=== PATIENT | female | born 1940 | race Caucasian/White ===

== ENCOUNTER 2017-11-26 09:37 | Day surgery (SDC) | payer OTHER ==
[~2017-11-26] VITALS: Ht 154.9 cm; Wt 71.7 kg
[2017-11-26] MEDS ORDERED: AMLO10TA PO (11:03)
[2017-11-26] MEDS ORDERED: METF500T PO (11:03)
[2017-11-26] MEDS ORDERED: LIDOCAINE 2% 100 MG/5 ML UJET TP ONE (11:38)
[2017-11-26] MEDS ORDERED: fentaNYL 0.05 MG/ML VIAL ONE (11:43)
[2017-11-26] MEDS ORDERED: fentaNYL 0.05 MG/ML VIAL IM ONE (12:00)
== END 2017-11-26 12:47 | disposition home or self-care (01) ==
LOC: MDS 09:37 → MMU 09:46 → MDS 12:47
PROVIDERS: ATTEND Internal Medicine Gastroenterology
DX: K57.90 Diverticulosis of intestine, part unspecified, without perforation or abscess without bleeding (principal); D64.9 Anemia, unspecified; E11.9 Type 2 diabetes mellitus without complications; E78.00 Pure hypercholesterolemia, unspecified; I10 Essential (primary) hypertension; E66.3 Overweight; Z90.710 Acquired absence of both cervix and uterus; Z80.0 Family history of malignant neoplasm of digestive organs; Z79.899 Other long term (current) drug therapy; Z79.84 Long term (current) use of oral hypoglycemic drugs; Z68.29 Body mass index [BMI] 29.0-29.9, adult
CPT/HCPCS: 45380; 82948; 88305; J3010